=== PATIENT | female | born 1955 | race Caucasian/White ===

== ENCOUNTER 2018-10-08 18:58 | Inpatient (IN) | payer OTHER ==
[2018-10-08] MEDS: ASPIRIN 325 MG TAB PO (20:13)
[2018-10-08 20:16] LABS: ADD MAN DIFF? NO
[2018-10-08 20:23] LABS: BASOPHIL # 0.1 10^3/ul (0.0-0.1); BASOPHILS % 0.6 % (0.0-2.0); EOSINOPHILS # 0.1 10^3/ul (0.0-0.5); EOSINOPHILS % 0.6 % (0.0-7.0); HEMATOCRIT 34.2 % (37.0-47.0); HEMOGLOBIN 11.2 g/dl (12.0-16.0); LYMPHOCYTES # 0.6 10^3/ul (0.8-2.9); LYMPHOCYTES % 8.1 % (15.0-51.0); MEAN CORPUSCULAR HEMOGLOBIN 31.2 pg (29.0-33.0); MEAN CORPUSCULAR HGB CONC 32.7 g/dl (32.0-37.0); MEAN CORPUSCULAR VOLUME 95.3 fl (82.0-101.0); MEAN PLATELET VOLUME 12.3 fl (7.4-10.4); MONOCYTE # 0.6 10^3/ul (0.3-0.9); MONOCYTES % 7.2 % (0.0-11.0); NEUTROPHIL # 6.6 10^3/ul (1.6-7.5); NEUTROPHILS % 83.1 % (39.0-77.0); PLATELET COUNT 130 10^3/UL (140-415); RED BLOOD COUNT 3.59 10^6/ul (4.20-5.40)
[2018-10-08 20:23] LABS: WHITE BLOOD COUNT 7.9 10^3/ul (4.8-10.8)
[2018-10-08 20:40] LABS: ANION GAP 9 (5-13); BLOOD UREA NITROGEN 26 mg/dl (7-20); CALCIUM 8.7 mg/dl (8.4-10.2); CARBON DIOXIDE 33 mmol/L (21-31); CHLORIDE 95 mmol/L (97-110); CREATININE 2.87 mg/dl (0.44-1.00); Estimated GFR 17 mL/min (>60); GLUCOSE 231 mg/dl (70-220); POTASSIUM 3.6 mmol/L (3.5-5.1); SODIUM 137 mmol/L (135-144)
[2018-10-08 20:42] LABS: INR 1.11; PROTIME 14.4 Sec (11.9-14.9); PT RATIO 1.1
[2018-10-08 20:43] LABS: PARTIAL THROMBOPLASTIN TIME 36.2 Sec (23.0-35.0)
[2018-10-08 20:53] LABS: TROPONIN-I 0.169 ng/ml (0.000-0.120)
[2018-10-08] MEDS ORDERED: BISACODYL (EC) 5 MG TAB PO (22:30)
[2018-10-08] MEDS ORDERED: NACL 0.9% 3 ML SYG IV (22:30)
[2018-10-08] MEDS ORDERED: DOCUSATE SODIUM 100 MG CAP PO (22:30)
[2018-10-08] MEDS ORDERED: ONDANSETRON 4 MG INJ IV ×2 (22:30)
[2018-10-09 02:42] LABS: CREATINE KINASE 122 IU/L (23-200)
[2018-10-09 02:51] LABS: CK-MB 1.23 ng/ml (0.0-2.4)
[2018-10-09] MEDS ORDERED: DEXTROSE 50% 50 ML SYRINGE IV ×2 (04:00)
[2018-10-09] MEDS ORDERED: GLUCOSE GEL 15 GRAM TUBE PO ×2 (04:00)
[2018-10-09] MEDS ORDERED: GLUCAGON 1 MG INJ IM (04:00)
[2018-10-09] MEDS ORDERED: GLUCOSE GEL 15 GRAM TUBE BUCCAL (04:00)
[2018-10-09] MEDS: ACETAMINOPHEN 325 MG TAB PO (04:40)
[2018-10-09] MEDS: PANTOPRAZOLE (EC) 40 MG TAB PO (05:17)
[2018-10-09] MEDS: traMADol 50 MG TAB PO (05:26)
[2018-10-09 06:12] LABS: ADD MAN DIFF? NO
[2018-10-09 06:19] LABS: WHITE BLOOD COUNT 6.9 10^3/ul (4.8-10.8)
[2018-10-09 06:19] LABS: BASOPHIL # 0.1 10^3/ul (0.0-0.1); BASOPHILS % 0.9 % (0.0-2.0); EOSINOPHILS # 0.1 10^3/ul (0.0-0.5); EOSINOPHILS % 1.9 % (0.0-7.0); HEMATOCRIT 32.8 % (37.0-47.0); HEMOGLOBIN 10.6 g/dl (12.0-16.0); LYMPHOCYTES # 1.5 10^3/ul (0.8-2.9); MEAN CORPUSCULAR HEMOGLOBIN 31.2 pg (29.0-33.0); MEAN CORPUSCULAR HGB CONC 32.3 g/dl (32.0-37.0); MEAN CORPUSCULAR VOLUME 96.5 fl (82.0-101.0); MEAN PLATELET VOLUME 12.9 fl (7.4-10.4); MONOCYTE # 0.9 10^3/ul (0.3-0.9); MONOCYTES % 12.4 % (0.0-11.0); NEUTROPHIL # 4.3 10^3/ul (1.6-7.5); NEUTROPHILS % 62.5 % (39.0-77.0); PLATELET COUNT 119 10^3/UL (140-415)
[2018-10-09 06:55] LABS: ALANINE AMINOTRANSFERASE 7 IU/L (13-69); ALBUMIN/GLOBULIN RATIO 1.11; ALKALINE PHOSPHATASE 112 IU/L (42-121); ANION GAP 12 (5-13); ASPARTATE AMINO TRANSFERASE 14 IU/L (15-46); BILIRUBIN,INDIRECT 0.4 mg/dl (0-1.1); BILIRUBIN,TOTAL 0.4 mg/dl (0.2-1.3); BLOOD UREA NITROGEN 33 mg/dl (7-20); CALCIUM 8.7 mg/dl (8.4-10.2); CARBON DIOXIDE 33 mmol/L (21-31); CHLORIDE 94 mmol/L (97-110); CHOL/HDL RATIO 4.2 RATIO; CHOLESTEROL 127 mg/dl (100-200); CREATININE 3.42 mg/dl (0.44-1.00); Estimated GFR 14 mL/min (>60); GLUCOSE 268 mg/dl (70-220); HDL CHOLESTEROL 30 mg/dl (35-98); LDL CHOLESTEROL,CALCULATED 32 mg/dl; MAGNESIUM 1.5 mg/dl (1.7-2.5); POTASSIUM 3.3 mmol/L (3.5-5.1); SODIUM 139 mmol/L (135-144); TOTAL PROTEIN 7.6 g/dl (6.1-8.1); TRIGLYCERIDES 326 mg/dl (0-149)
[2018-10-09 07:00] LABS: CREATINE KINASE 136 IU/L (23-200)
[2018-10-09 07:01] LABS: CK INDEX 1.1; CK-MB 1.43 ng/ml (0.0-2.4)
[2018-10-09 07:11] LABS: TROPONIN-I 0.425 ng/ml (0.000-0.120)
[2018-10-09] MEDS: GABAPENTIN 300 MG CAP PO ×3 (08:06→21:42)
[2018-10-09] MEDS: ASPIRIN 81 MG TAB PO (08:06)
[2018-10-09] MEDS: SACUBITRIL/VALSARTAN (24mg-26mg) TABLET PO ×2 (08:06→21:42)
[2018-10-09] MEDS: GEMFIBROZIL 600 MG TAB PO (08:06)
[2018-10-09] MEDS: MIDODRINE 5 MG TAB PO (08:07)
[2018-10-09] MEDS: INSULIN ASPART [NOVOLOG] 3 ML PEN SC ×6 (08:11→20:21)
[2018-10-09] MEDS ORDERED: NON-FORMULARY/PATIENT OWN MED (Omeprazole* 20 MG) PO (09:00)
[2018-10-09] MEDS: POTASSIUM CHLORIDE (SR) 20 MEQ TAB PO (10:32)
[2018-10-09] MEDS: MAGNESIUM SULFATE 2 GM/50 ML 50 ML IVPB (10:32)
[2018-10-09] MEDS: FISH OIL 1,000 MG CAP PO ×2 (10:33→21:41)
[2018-10-09] MEDS: INSULIN GLARGINE [LANTus] (100 UNITS/ML) SYG SC (10:35)
[2018-10-09 11:18] LABS: CREATINE KINASE 137 IU/L (23-200)
[2018-10-09 11:30] LABS: CK-MB 1.32 ng/ml (0.0-2.4)
[2018-10-09 11:51] LABS: TROPONIN-I 0.397 ng/ml (0.000-0.120)
[2018-10-09] MEDS ORDERED: MIDAZOLAM 1 MG/ML 2 ML INJ (15:29)
[2018-10-09] MEDS ORDERED: IODIXANOL LOCM 100 ML BTL (15:29)
[2018-10-09] MEDS ORDERED: HEPARIN 1000 UNITS/ML 10 ML INJ (15:29)
[2018-10-09] MEDS ORDERED: FENTAnyl 50 MCG/ML VIAL (15:30)
[2018-10-09] MEDS ORDERED: VERAPAMIL 5 MG INJ (15:30)
[2018-10-09] MEDS ORDERED: NITROGLYCERIN (IC) 100 MCG/ML INJ (15:30)
[2018-10-09] MEDS ORDERED: SOD CHLORIDE 0.9% 500 ML (15:34)
[2018-10-09] MEDS: HOLD all METFORMIN and METFORMIN CONTAINING medications for 48 hours post procedure. Chec XX (17:07)
[2018-10-09 20:13] LABS: CREATINE KINASE 107 IU/L (23-200)
[2018-10-09 20:22] LABS: CK INDEX 1.1; CK-MB 1.17 ng/ml (0.0-2.4)
[2018-10-09 20:30] LABS: TROPONIN-I 0.362 ng/ml (0.000-0.120)
[2018-10-09] MEDS ORDERED: INSULIN GLARGINE [LANTus] (100 UNITS/ML) SYG SC (21:00)
[2018-10-09] MEDS ORDERED: INSULIN REGULAR, HUMAN 100 UNIT/1 ML 3ML VIAL SC (21:00)
[2018-10-09] MEDS: ATORVASTATIN 80 MG TAB PO (21:41)
[2018-10-09] MEDS: MELATONIN 5 MG TABLET PO (21:41)
[2018-10-10 00:49] LABS: CREATINE KINASE 114 IU/L (23-200)
[2018-10-10 01:02] LABS: CK-MB 1.13 ng/ml (0.0-2.4)
[2018-10-10] MEDS: morphine 2 MG INJ IV (01:05)
[2018-10-10] MEDS: LORAZEPAM 2 MG INJ IV (01:57)
[2018-10-10] MEDS: ACCU-CHEK XX (02:00)
[2018-10-10] MEDS: PANTOPRAZOLE (EC) 40 MG TAB PO (05:50)
[2018-10-10] MEDS: SACUBITRIL/VALSARTAN (24mg-26mg) TABLET PO ×2 (08:06→21:39)
[2018-10-10] MEDS: ASPIRIN 81 MG TAB PO (08:07)
[2018-10-10] MEDS: ISOSORBIDE MONONITRATE(SR)60 MG TAB PO (08:07)
[2018-10-10] MEDS: FISH OIL 1,000 MG CAP PO ×2 (08:07→21:39)
[2018-10-10] MEDS: GABAPENTIN 300 MG CAP PO ×3 (08:08→21:39)
[2018-10-10] MEDS: GEMFIBROZIL 600 MG TAB PO (08:08)
[2018-10-10] MEDS: INSULIN ASPART [NOVOLOG] 3 ML PEN SC ×7 (08:20→21:50)
[2018-10-10] MEDS: INSULIN GLARGINE [LANTus] (100 UNITS/ML) SYG SC ×2 (08:20→11:09)
[2018-10-10 20:39] LABS: HEPATITIS B SURFACE ANTIGEN NEGATIVE (NEGATIVE)
[2018-10-10 20:56] LABS: HEPATITIS B SURFACE ANTIBODY POSITIVE (NEGATIVE)
[2018-10-10] MEDS: ATORVASTATIN 80 MG TAB PO (21:39)
[2018-10-11] MEDS: ACCU-CHEK XX (02:07)
[2018-10-11] MEDS: PANTOPRAZOLE (EC) 40 MG TAB PO (05:37)
[2018-10-11 06:43] LABS: ADD MAN DIFF? NO
[2018-10-11 06:47] LABS: BASOPHILS % 0.6 % (0.0-2.0); EOSINOPHILS # 0.2 10^3/ul (0.0-0.5); EOSINOPHILS % 2.4 % (0.0-7.0); HEMATOCRIT 32.4 % (37.0-47.0); HEMOGLOBIN 10.7 g/dl (12.0-16.0); LYMPHOCYTES % 15.2 % (15.0-51.0); MEAN CORPUSCULAR HEMOGLOBIN 31.3 pg (29.0-33.0); MEAN CORPUSCULAR VOLUME 94.7 fl (82.0-101.0); MEAN PLATELET VOLUME 12.8 fl (7.4-10.4); MONOCYTE # 0.6 10^3/ul (0.3-0.9); MONOCYTES % 9.4 % (0.0-11.0); NEUTROPHIL # 4.9 10^3/ul (1.6-7.5); NEUTROPHILS % 72.1 % (39.0-77.0); PLATELET COUNT 131 10^3/UL (140-415); RED BLOOD COUNT 3.42 10^6/ul (4.20-5.40); RED CELL DISTRIBUTION WIDTH 13.8 % (11.5-14.5)
[2018-10-11 06:47] LABS: WHITE BLOOD COUNT 6.7 10^3/ul (4.8-10.8)
[2018-10-11 07:10] LABS: ANION GAP 11 (5-13); BLOOD UREA NITROGEN 30 mg/dl (7-20); CALCIUM 9.1 mg/dl (8.4-10.2); CARBON DIOXIDE 31 mmol/L (21-31); CHLORIDE 95 mmol/L (97-110); CREATININE 3.64 mg/dl (0.44-1.00); Estimated GFR 13 mL/min (>60); GLUCOSE 263 mg/dl (70-220); MAGNESIUM 1.9 mg/dl (1.7-2.5); PHOSPHORUS 3.8 mg/dl (2.5-4.9); POTASSIUM 3.9 mmol/L (3.5-5.1); SODIUM 137 mmol/L (135-144)
[2018-10-11] MEDS: INSULIN ASPART [NOVOLOG] 3 ML PEN SC ×8 (07:52→22:13)
[2018-10-11] MEDS: FISH OIL 1,000 MG CAP PO ×2 (08:14→22:08)
[2018-10-11] MEDS: ASPIRIN 81 MG TAB PO (08:14)
[2018-10-11] MEDS: SACUBITRIL/VALSARTAN (24mg-26mg) TABLET PO ×2 (08:14→22:08)
[2018-10-11] MEDS: GABAPENTIN 300 MG CAP PO (08:14)
[2018-10-11] MEDS: ISOSORBIDE MONONITRATE(SR)60 MG TAB PO (08:15)
[2018-10-11] MEDS: GEMFIBROZIL 600 MG TAB PO (08:15)
[2018-10-11] MEDS: INSULIN GLARGINE [LANTus] (100 UNITS/ML) SYG SC ×2 (08:20→14:06)
[2018-10-11] MEDS: ALBUMIN HUMAN 25% 50 ML IV (14:18)
[2018-10-11] MEDS: ATORVASTATIN 80 MG TAB PO (22:11)
[2018-10-11] MEDS: traMADol 50 MG TAB PO (22:15)
[2018-10-11] MEDS: LORAZEPAM 2 MG INJ IV (22:16)
[2018-10-12] MEDS: ACCU-CHEK XX (02:00)
[2018-10-12] MEDS: PANTOPRAZOLE (EC) 40 MG TAB PO (06:01)
[2018-10-12] MEDS: INSULIN ASPART [NOVOLOG] 3 ML PEN SC ×7 (07:56→21:21)
[2018-10-12] MEDS: ASPIRIN 81 MG TAB PO (08:48)
[2018-10-12] MEDS: GEMFIBROZIL 600 MG TAB PO (08:48)
[2018-10-12] MEDS: FISH OIL 1,000 MG CAP PO ×2 (08:48→21:23)
[2018-10-12] MEDS: INSULIN GLARGINE [LANTus] (100 UNITS/ML) SYG SC (08:57)
[2018-10-12] MEDS: SACUBITRIL/VALSARTAN (24mg-26mg) TABLET PO ×2 (08:57→21:13)
[2018-10-12] MEDS ORDERED: ZOLPIDEM 5 MG TAB PO (10:00)
[2018-10-12] MEDS: ALBUMIN HUMAN 25% 100 ML IV (10:12)
[2018-10-12] MEDS ORDERED: traZODone 50 MG TAB PO (21:00)
[2018-10-12] MEDS: ACETAMINOPHEN 325 MG TAB PO (21:14)
[2018-10-12] MEDS: ATORVASTATIN 80 MG TAB PO (21:26)
[2018-10-12] MEDS: NITROGLYCERIN (SL) 0.4 MG TAB SL (21:27)
[2018-10-12] MEDS ORDERED: NITROGLYCERIN (SL) 0.4 MG TAB SL (21:30)
[2018-10-12] MEDS: ZOLPIDEM 5 MG TAB PO (21:40)
[2018-10-13] MEDS: traMADol 50 MG TAB PO (00:29)
[2018-10-13] MEDS: ACCU-CHEK XX (02:00)
[2018-10-13] MEDS: PANTOPRAZOLE (EC) 40 MG TAB PO (06:38)
[2018-10-13] MEDS: INSULIN ASPART [NOVOLOG] 3 ML PEN SC ×4 (07:55→11:24)
[2018-10-13] MEDS: ASPIRIN 81 MG TAB PO (08:14)
[2018-10-13] MEDS: FISH OIL 1,000 MG CAP PO (08:14)
[2018-10-13] MEDS: SACUBITRIL/VALSARTAN (24mg-26mg) TABLET PO (08:14)
[2018-10-13] MEDS: GEMFIBROZIL 600 MG TAB PO (08:14)
[2018-10-13] MEDS: INSULIN GLARGINE [LANTus] (100 UNITS/ML) SYG SC (08:15)
[2018-10-13] MEDS ORDERED: traMADol 50 MG TAB PO (23:40)
== END 2018-10-13 14:41 | disposition home or self-care (01) | DRG 280 ==
LOC: TEL 22:12 → E/R 18:58 → TEL 10-09 19:32
PROC: 4A023N7 Measurement of Cardiac Sampling and Pressure, Left Heart, Percutaneous Approach (ICD-10-PCS; principal; 2018-10-09 15:42)
PROC: B2111ZZ Fluoroscopy of Multiple Coronary Arteries using Low Osmolar Contrast (ICD-10-PCS; 2018-10-09 15:42)
PROC: 5A1D70Z Performance of Urinary Filtration, Intermittent, Less than 6 Hours Per Day (ICD-10-PCS; 2018-10-09 15:42)
PROC: 5A1D70Z Performance of Urinary Filtration, Intermittent, Less than 6 Hours Per Day (ICD-10-PCS; 2018-10-09 15:42)
PROC: 5A1D70Z Performance of Urinary Filtration, Intermittent, Less than 6 Hours Per Day (ICD-10-PCS; 2018-10-09 15:42)
DX: I21.4 Non-ST elevation (NSTEMI) myocardial infarction (principal); N18.6 End stage renal disease; I50.22 Chronic systolic (congestive) heart failure; I13.0 Hypertensive heart and chronic kidney disease with heart failure and stage 1 through stage 4 chronic kidney disease, or unspecified chronic kidney disease; I25.5 Ischemic cardiomyopathy; E11.8 Type 2 diabetes mellitus with unspecified complications; E11.22 Type 2 diabetes mellitus with diabetic chronic kidney disease; E83.42 Hypomagnesemia; E87.5 Hyperkalemia; E78.5 Hyperlipidemia, unspecified; I25.10 Atherosclerotic heart disease of native coronary artery without angina pectoris; E87.6 Hypokalemia; E66.9 Obesity, unspecified; Z68.34 Body mass index [BMI] 34.0-34.9, adult; D63.1 Anemia in chronic kidney disease; Z95.0 Presence of cardiac pacemaker; Z79.4 Long term (current) use of insulin; Z79.82 Long term (current) use of aspirin
CPT/HCPCS: 36415; 71045; 80048; 80053; 80061; 82550; 82553; 82962; 83036; 83735; 84100; 84443; 84484; 85025; 85610; 85730; 86706; 87040-91; 87340; 90935; 93005; 93306; 93454; 93970; 99285-25

== ENCOUNTER 2018-10-15 21:39 | Inpatient (IN) | payer OTHER ==
[2018-10-15] MEDS ORDERED: NITROGLYCERIN (SL) 0.4 MG TAB SL (22:30)
[2018-10-15 22:53] LABS: ADD MAN DIFF? NO
[2018-10-15 22:56] LABS: WHITE BLOOD COUNT 7.5 10^3/ul (4.8-10.8)
[2018-10-15 22:56] LABS: BASOPHIL # 0.1 10^3/ul (0.0-0.1); BASOPHILS % 0.7 % (0.0-2.0); EOSINOPHILS # 0.1 10^3/ul (0.0-0.5); EOSINOPHILS % 1.6 % (0.0-7.0); HEMATOCRIT 32.8 % (37.0-47.0); HEMOGLOBIN 10.6 g/dl (12.0-16.0); LYMPHOCYTES % 12.7 % (15.0-51.0); MEAN CORPUSCULAR HEMOGLOBIN 30.9 pg (29.0-33.0); MEAN CORPUSCULAR HGB CONC 32.3 g/dl (32.0-37.0); MEAN CORPUSCULAR VOLUME 95.6 fl (82.0-101.0); MEAN PLATELET VOLUME 12.8 fl (7.4-10.4); MONOCYTE # 0.4 10^3/ul (0.3-0.9); MONOCYTES % 5.6 % (0.0-11.0); NEUTROPHILS % 79.1 % (39.0-77.0); PLATELET COUNT 144 10^3/UL (140-415); RED BLOOD COUNT 3.43 10^6/ul (4.20-5.40); RED CELL DISTRIBUTION WIDTH 13.7 % (11.5-14.5)
[2018-10-15] MEDS: ASPIRIN 81 MG TAB PO (23:00)
[2018-10-15] MEDS: NITROGLYCERIN 2% 1 GM OINT PKT TD (23:01)
[2018-10-15 23:10] LABS: HEMOGLOBIN A1C 8.7 % (0-5.9)
[2018-10-15 23:14] LABS: CHOL/HDL RATIO 3.6 RATIO; INR 1.21; LDL CHOLESTEROL,CALCULATED 28 mg/dl; PROTIME 15.4 Sec (11.9-14.9); PT RATIO 1.2
[2018-10-15 23:15] LABS: CHOLESTEROL 96 mg/dl (100-200)
[2018-10-15 23:15] LABS: ANION GAP 14 (5-13); BLOOD UREA NITROGEN 66 mg/dl (7-20); CALCIUM 7.9 mg/dl (8.4-10.2); CARBON DIOXIDE 21 mmol/L (21-31); CHLORIDE 103 mmol/L (97-110); CREATININE 5.81 mg/dl (0.44-1.00); Estimated GFR 7 mL/min (>60); GLUCOSE 208 mg/dl (70-220); HDL CHOLESTEROL 26 mg/dl (35-98); POTASSIUM 4.3 mmol/L (3.5-5.1); SODIUM 138 mmol/L (135-144); TRIGLYCERIDES 211 mg/dl (0-149)
[2018-10-15 23:28] LABS: TROPONIN-I 0.125 ng/ml (0.000-0.120)
[2018-10-16] MEDS ORDERED: ACETAMINOPHEN 325 MG TAB PO
[2018-10-16 00:02] LABS: PARTIAL THROMBOPLASTIN TIME 148.4 Sec (23.0-35.0)
[2018-10-16] MEDS ORDERED: ONDANSETRON 4 MG INJ IV ×2 (02:30)
[2018-10-16] MEDS ORDERED: NITROGLYCERIN (SL) 0.4 MG TAB SL (02:30)
[2018-10-16] MEDS ORDERED: ALBUTEROL/IPRATROPIUM (NEB) 3 ML AMP HHN (02:30)
[2018-10-16] MEDS ORDERED: GLUCOSE GEL 15 GRAM TUBE BUCCAL (02:30)
[2018-10-16] MEDS ORDERED: NACL 0.9% 3 ML SYG IV (02:30)
[2018-10-16] MEDS ORDERED: NON-FORMULARY/PATIENT OWN MED (Insulin Lispro (Humalog Kwikpen U-100) 10 UNIT) SQ (02:30)
[2018-10-16] MEDS ORDERED: DEXTROSE 50% 50 ML SYRINGE IV ×2 (02:30)
[2018-10-16] MEDS ORDERED: GLUCAGON 1 MG INJ IM (02:30)
[2018-10-16] MEDS ORDERED: traMADol 50 MG TAB PO (02:30)
[2018-10-16] MEDS ORDERED: GLUCOSE GEL 15 GRAM TUBE PO ×2 (02:30)
[2018-10-16 04:27] LABS: ADD MAN DIFF? NO
[2018-10-16 04:29] LABS: WHITE BLOOD COUNT 6.8 10^3/ul (4.8-10.8)
[2018-10-16 04:29] LABS: BASOPHIL # 0.1 10^3/ul (0.0-0.1); EOSINOPHILS # 0.1 10^3/ul (0.0-0.5); EOSINOPHILS % 2.1 % (0.0-7.0); HEMATOCRIT 29.8 % (37.0-47.0); HEMOGLOBIN 9.9 g/dl (12.0-16.0); LYMPHOCYTES % 14.5 % (15.0-51.0); MEAN CORPUSCULAR HEMOGLOBIN 31.3 pg (29.0-33.0); MEAN CORPUSCULAR HGB CONC 33.2 g/dl (32.0-37.0); MEAN CORPUSCULAR VOLUME 94.3 fl (82.0-101.0); MEAN PLATELET VOLUME 12.4 fl (7.4-10.4); MONOCYTE # 0.6 10^3/ul (0.3-0.9); MONOCYTES % 8.7 % (0.0-11.0); NEUTROPHIL # 4.9 10^3/ul (1.6-7.5); NEUTROPHILS % 73.3 % (39.0-77.0); PLATELET COUNT 143 10^3/UL (140-415); RED BLOOD COUNT 3.16 10^6/ul (4.20-5.40); RED CELL DISTRIBUTION WIDTH 13.5 % (11.5-14.5)
[2018-10-16 04:59] LABS: CREATINE KINASE 74 IU/L (23-200)
[2018-10-16 05:07] LABS: ALANINE AMINOTRANSFERASE 19 IU/L (13-69); ALBUMIN 3.7 g/dl (3.3-4.9); ALBUMIN/GLOBULIN RATIO 1.12; ALKALINE PHOSPHATASE 107 IU/L (42-121); ANION GAP 14 (5-13); ASPARTATE AMINO TRANSFERASE 9 IU/L (15-46); BILIRUBIN,INDIRECT 0.2 mg/dl (0-1.1); BILIRUBIN,TOTAL 0.2 mg/dl (0.2-1.3); BLOOD UREA NITROGEN 67 mg/dl (7-20); CALCIUM 7.7 mg/dl (8.4-10.2); CARBON DIOXIDE 22 mmol/L (21-31); CHLORIDE 104 mmol/L (97-110); CREATININE 5.51 mg/dl (0.44-1.00); Estimated GFR 8 mL/min (>60); GLUCOSE 153 mg/dl (70-220); MAGNESIUM 1.8 mg/dl (1.7-2.5); POTASSIUM 4.4 mmol/L (3.5-5.1); SODIUM 140 mmol/L (135-144)
[2018-10-16 05:09] LABS: CK INDEX 2.4; CK-MB 1.81 ng/ml (0.0-2.4)
[2018-10-16 05:16] LABS: TROPONIN-I 0.123 ng/ml (0.000-0.120)
[2018-10-16] MEDS: PANTOPRAZOLE (EC) 40 MG TAB PO (07:14)
[2018-10-16] MEDS ORDERED: LIDOCAINE 1% (MDV) 20 ML INJ (07:27)
[2018-10-16] MEDS: LIDOCAINE 1% (MDV) 20 ML INJ SC (07:44)
[2018-10-16] MEDS: INSULIN ASPART [NOVOLOG] 3 ML PEN SC ×7 (08:00→22:17)
[2018-10-16] MEDS ORDERED: NON-FORMULARY/PATIENT OWN MED (Omeprazole* 20 MG) PO (09:00)
[2018-10-16 10:55] LABS: CREATINE KINASE 77 IU/L (23-200)
[2018-10-16 11:09] LABS: CK INDEX 2.1; CK-MB 1.59 ng/ml (0.0-2.4); TROPONIN-I 0.104 ng/ml (0.000-0.120)
[2018-10-16] MEDS: GEMFIBROZIL 600 MG TAB PO (11:32)
[2018-10-16] MEDS: ASPIRIN 81 MG TAB PO (11:33)
[2018-10-16] MEDS: HEPARIN 5,000 UNIT/1 ML VIAL SC ×2 (11:34→21:00)
[2018-10-16] MEDS: SACUBITRIL/VALSARTAN (24mg-26mg) TABLET PO ×2 (11:34→21:38)
[2018-10-16] MEDS: GABAPENTIN 300 MG CAP PO ×3 (11:35→21:37)
[2018-10-16] MEDS: MIDODRINE 5 MG TAB PO ×3 (11:35→21:37)
[2018-10-16] MEDS: INSULIN GLARGINE [LANTus] (100 UNITS/ML) SYG SC (21:00)
[2018-10-16] MEDS: ATORVASTATIN 80 MG TAB PO (21:37)
[2018-10-17] MEDS: ACCU-CHEK XX (02:00)
[2018-10-17] MEDS: PANTOPRAZOLE (EC) 40 MG TAB PO (06:00)
[2018-10-17 06:18] LABS: ADD MAN DIFF? NO
[2018-10-17 06:21] LABS: BASOPHIL # 0.1 10^3/ul (0.0-0.1); BASOPHILS % 0.7 % (0.0-2.0); EOSINOPHILS # 0.2 10^3/ul (0.0-0.5); EOSINOPHILS % 2.7 % (0.0-7.0); HEMATOCRIT 28.9 % (37.0-47.0); HEMOGLOBIN 9.5 g/dl (12.0-16.0); LYMPHOCYTES # 1.5 10^3/ul (0.8-2.9); LYMPHOCYTES % 21.6 % (15.0-51.0); MEAN CORPUSCULAR HEMOGLOBIN 31.3 pg (29.0-33.0); MEAN CORPUSCULAR HGB CONC 32.9 g/dl (32.0-37.0); MEAN CORPUSCULAR VOLUME 95.1 fl (82.0-101.0); MEAN PLATELET VOLUME 12.8 fl (7.4-10.4); MONOCYTE # 0.7 10^3/ul (0.3-0.9); MONOCYTES % 9.8 % (0.0-11.0); NEUTROPHIL # 4.6 10^3/ul (1.6-7.5); NEUTROPHILS % 64.9 % (39.0-77.0); PLATELET COUNT 163 10^3/UL (140-415); RED BLOOD COUNT 3.04 10^6/ul (4.20-5.40); RED CELL DISTRIBUTION WIDTH 13.7 % (11.5-14.5)
[2018-10-17 07:06] LABS: AMPHETAMINE/METHAMPHETAMINE Negative (NEGATIVE); BARBITURATES Negative (NEGATIVE); BENZODIAZEPINES Negative (NEGATIVE); CANNABINOIDS Negative (NEGATIVE); COCAINE Negative (NEGATIVE); OPIATES Negative (NEGATIVE)
[2018-10-17 07:08] LABS: ANION GAP 14 (5-13); BLOOD UREA NITROGEN 74 mg/dl (7-20); CALCIUM 7.8 mg/dl (8.4-10.2); CARBON DIOXIDE 21 mmol/L (21-31); CHLORIDE 104 mmol/L (97-110); CREATININE 5.73 mg/dl (0.44-1.00); Estimated GFR 7 mL/min (>60); GLUCOSE 160 mg/dl (70-220); MAGNESIUM 1.8 mg/dl (1.7-2.5); PHOSPHORUS 5.5 mg/dl (2.5-4.9); POTASSIUM 4.1 mmol/L (3.5-5.1); SODIUM 139 mmol/L (135-144)
[2018-10-17] MEDS: INSULIN ASPART [NOVOLOG] 3 ML PEN SC ×7 (07:53→20:55)
[2018-10-17] MEDS: GABAPENTIN 300 MG CAP PO ×3 (08:49→20:56)
[2018-10-17] MEDS: ASPIRIN 81 MG TAB PO (08:50)
[2018-10-17] MEDS: MIDODRINE 5 MG TAB PO ×3 (08:50→20:57)
[2018-10-17] MEDS: SACUBITRIL/VALSARTAN (24mg-26mg) TABLET PO ×2 (08:50→20:56)
[2018-10-17] MEDS: GEMFIBROZIL 600 MG TAB PO (08:50)
[2018-10-17] MEDS: HEPARIN 5,000 UNIT/1 ML VIAL SC ×2 (08:58→21:21)
[2018-10-17 12:47] LABS: HEPATITIS B SURFACE ANTIGEN NEGATIVE (NEGATIVE)
[2018-10-17 16:10] LABS: ADD UMIC YES; UR ASCORBIC ACID NEGATIVE (NEGATIVE); UR BACTERIA FEW /HPF (NONE SEEN); UR BILIRUBIN (Dip) NEGATIVE (NEGATIVE); UR BLOOD (Dip) 1+ mg/dL (NEGATIVE); UR CLARITY SLIGHTLY CLOUDY (CLEAR); UR COLOR YELLOW (YELLOW); UR GLUCOSE (Dip) 1+ mg/dL (NEGATIVE); UR KETONES (Dip) NEGATIVE (NEGATIVE); UR LEUKOCYTE ESTERASE (Dip) 2+ Leu/ul (NEGATIVE); UR NITRITE (Dip) NEGATIVE (NEGATIVE); UR RBC 4 /HPF (0-5); UR SPECIFIC GRAVITY (Dip) 1.012 (1.003-1.030); UR SQUAMOUS EPITHELIAL CELL MODERATE /HPF (FEW); UR TOTAL PROTEIN (Dip) 2+ mg/dl (NEGATIVE); UR UROBILINOGEN (Dip) NEGATIVE (NEGATIVE); UR WBC 14 /HPF (0-5)
[2018-10-17] MEDS: ATORVASTATIN 80 MG TAB PO (20:59)
[2018-10-17] MEDS: INSULIN GLARGINE [LANTus] (100 UNITS/ML) SYG SC (21:22)
[2018-10-18] MEDS: ACETAMINOPHEN 325 MG TAB PO ×3 (00:20→22:35)
[2018-10-18] MEDS: ACCU-CHEK XX (02:00)
[2018-10-18] MEDS: hydrALAzine 20 MG INJ IV (02:17)
[2018-10-18] MEDS: ZOLPIDEM 5 MG TAB PO ×2 (02:17→22:33)
[2018-10-18] MEDS: PANTOPRAZOLE (EC) 40 MG TAB PO (06:19)
[2018-10-18] MEDS: INSULIN ASPART [NOVOLOG] 3 ML PEN SC ×7 (07:37→21:00)
[2018-10-18] MEDS: GEMFIBROZIL 600 MG TAB PO (08:48)
[2018-10-18] MEDS: SACUBITRIL/VALSARTAN (24mg-26mg) TABLET PO ×2 (08:48→20:48)
[2018-10-18] MEDS: MIDODRINE 5 MG TAB PO ×3 (08:48→21:00)
[2018-10-18] MEDS: GABAPENTIN 300 MG CAP PO ×3 (08:48→20:48)
[2018-10-18] MEDS: ASPIRIN 81 MG TAB PO (08:48)
[2018-10-18] MEDS: HEPARIN 5,000 UNIT/1 ML VIAL SC ×2 (08:54→21:01)
[2018-10-18 11:53] LABS: PROCALCITONIN 3.48 ng/mL (0.00-0.10)
[2018-10-18] MEDS: CEFTRIAXONE 1 GM/50 ML (PMX) 50 ML IVPB (11:57)
[2018-10-18] MEDS: LOPERAMIDE 2 MG CAP PO (17:14)
[2018-10-18] MEDS: ATORVASTATIN 80 MG TAB PO (20:49)
[2018-10-18] MEDS: INSULIN GLARGINE [LANTus] (100 UNITS/ML) SYG SC (21:01)
[2018-10-19] MEDS: ACCU-CHEK XX (02:00)
[2018-10-19] MEDS: ACETAMINOPHEN 325 MG TAB PO (04:27)
[2018-10-19] MEDS: PANTOPRAZOLE (EC) 40 MG TAB PO (04:27)
[2018-10-19 06:52] LABS: ADD MAN DIFF? NO
[2018-10-19 06:58] LABS: BASOPHIL # 0.1 10^3/ul (0.0-0.1); BASOPHILS % 0.5 % (0.0-2.0); EOSINOPHILS # 0.1 10^3/ul (0.0-0.5); EOSINOPHILS % 0.5 % (0.0-7.0); HEMATOCRIT 28.2 % (37.0-47.0); HEMOGLOBIN 9.1 g/dl (12.0-16.0); LYMPHOCYTES # 1.5 10^3/ul (0.8-2.9); LYMPHOCYTES % 14.8 % (15.0-51.0); MEAN CORPUSCULAR HEMOGLOBIN 31.1 pg (29.0-33.0); MEAN CORPUSCULAR HGB CONC 32.3 g/dl (32.0-37.0); MEAN CORPUSCULAR VOLUME 96.2 fl (82.0-101.0); MEAN PLATELET VOLUME 12.7 fl (7.4-10.4); MONOCYTE # 0.9 10^3/ul (0.3-0.9); MONOCYTES % 9.3 % (0.0-11.0); NEUTROPHIL # 7.5 10^3/ul (1.6-7.5); NEUTROPHILS % 74.5 % (39.0-77.0); PLATELET COUNT 149 10^3/UL (140-415); RED BLOOD COUNT 2.93 10^6/ul (4.20-5.40); RED CELL DISTRIBUTION WIDTH 13.9 % (11.5-14.5)
[2018-10-19 07:19] LABS: ANION GAP 13 (5-13); BLOOD UREA NITROGEN 61 mg/dl (7-20); CARBON DIOXIDE 23 mmol/L (21-31); CHLORIDE 103 mmol/L (97-110); CREATININE 4.75 mg/dl (0.44-1.00); Estimated GFR 9 mL/min (>60); GLUCOSE 141 mg/dl (70-220); MAGNESIUM 1.7 mg/dl (1.7-2.5); PHOSPHORUS 4.1 mg/dl (2.5-4.9); POTASSIUM 3.5 mmol/L (3.5-5.1); SODIUM 139 mmol/L (135-144)
[2018-10-19] MEDS: INSULIN ASPART [NOVOLOG] 3 ML PEN SC ×7 (07:55→21:28)
[2018-10-19] MEDS: MIDODRINE 5 MG TAB PO ×3 (09:36→21:09)
[2018-10-19] MEDS: ASPIRIN 81 MG TAB PO (09:37)
[2018-10-19] MEDS: SACUBITRIL/VALSARTAN (24mg-26mg) TABLET PO ×2 (09:37→21:08)
[2018-10-19] MEDS: GABAPENTIN 300 MG CAP PO ×3 (09:38→21:10)
[2018-10-19] MEDS: GEMFIBROZIL 600 MG TAB PO (09:38)
[2018-10-19] MEDS: HEPARIN 5,000 UNIT/1 ML VIAL SC ×2 (09:48→21:28)
[2018-10-19] MEDS: CEFTRIAXONE 1 GM/50 ML (PMX) 50 ML IVPB (11:45)
[2018-10-19] MEDS: ATORVASTATIN 80 MG TAB PO (21:09)
[2018-10-19] MEDS: ZOLPIDEM 5 MG TAB PO (21:13)
[2018-10-19] MEDS: INSULIN GLARGINE [LANTus] (100 UNITS/ML) SYG SC (21:27)
[2018-10-19] MEDS ORDERED: ZOLPIDEM 5 MG TAB PO (21:30)
[2018-10-20] MEDS: ACCU-CHEK XX (02:00)
[2018-10-20] MEDS: traZODone 50 MG TAB PO (03:03)
[2018-10-20] MEDS: PANTOPRAZOLE (EC) 40 MG TAB PO (05:50)
[2018-10-20] MEDS: ASPIRIN 81 MG TAB PO (08:29)
[2018-10-20] MEDS: GEMFIBROZIL 600 MG TAB PO (08:29)
[2018-10-20] MEDS: GABAPENTIN 300 MG CAP PO ×3 (08:29→21:09)
[2018-10-20] MEDS: HEPARIN 5,000 UNIT/1 ML VIAL SC ×2 (08:34→21:36)
[2018-10-20] MEDS: INSULIN ASPART [NOVOLOG] 3 ML PEN SC ×7 (08:35→21:00)
[2018-10-20] MEDS: SACUBITRIL/VALSARTAN (24mg-26mg) TABLET PO ×2 (08:36→21:09)
[2018-10-20] MEDS: MIDODRINE 5 MG TAB PO (09:00)
[2018-10-20] MEDS: CEFTRIAXONE 1 GM/50 ML (PMX) 50 ML IVPB (12:07)
[2018-10-20] MEDS: ATORVASTATIN 80 MG TAB PO (21:09)
[2018-10-20] MEDS: INSULIN GLARGINE [LANTus] (100 UNITS/ML) SYG SC (21:36)
[2018-10-21] MEDS: ZOLPIDEM 5 MG TAB PO (00:20)
[2018-10-21] MEDS: ACCU-CHEK XX (02:00)
[2018-10-21] MEDS: LORAZEPAM 2 MG INJ IV (03:33)
[2018-10-21] MEDS: PANTOPRAZOLE (EC) 40 MG TAB PO (06:00)
[2018-10-21] MEDS: SACUBITRIL/VALSARTAN (24mg-26mg) TABLET PO (08:32)
[2018-10-21] MEDS: INSULIN ASPART [NOVOLOG] 3 ML PEN SC ×4 (08:37→14:20)
[2018-10-21] MEDS ORDERED: COLLAGENASE 5 GM (UD JAR) TOP (09:00)
[2018-10-21] MEDS ORDERED: ZINC SULFATE 220 MG CAP GTB (09:00)
[2018-10-21] MEDS ORDERED: FOLIC ACID 1 MG TAB GTB (09:00)
[2018-10-21] MEDS ORDERED: ASCORBIC ACID 250 MG TAB GTB (09:00)
[2018-10-21] MEDS: ASPIRIN 81 MG TAB PO (09:21)
[2018-10-21] MEDS: GEMFIBROZIL 600 MG TAB PO (09:21)
[2018-10-21] MEDS: GABAPENTIN 300 MG CAP PO ×2 (09:21→14:21)
[2018-10-21] MEDS: HEPARIN 5,000 UNIT/1 ML VIAL SC (09:30)
[2018-10-21] MEDS: CEFTRIAXONE 1 GM/50 ML (PMX) 50 ML IVPB (14:21)
== END 2018-10-21 15:20 | disposition home health service (06) | DRG 689 ==
LOC: TEL 23:32 → E/R 21:39
PROVIDERS: Internal Medicine
PROC: 5A1D70Z Performance of Urinary Filtration, Intermittent, Less than 6 Hours Per Day (ICD-10-PCS; principal; 2018-10-17)
PROC: 5A1D70Z Performance of Urinary Filtration, Intermittent, Less than 6 Hours Per Day (ICD-10-PCS; 2018-10-19)
PROC: 5A1D70Z Performance of Urinary Filtration, Intermittent, Less than 6 Hours Per Day (ICD-10-PCS; 2018-10-21)
DX: N39.0 Urinary tract infection, site not specified (principal); N18.6 End stage renal disease; I13.2 Hypertensive heart and chronic kidney disease with heart failure and with stage 5 chronic kidney disease, or end stage renal disease; I50.22 Chronic systolic (congestive) heart failure; R42 Dizziness and giddiness; I25.10 Atherosclerotic heart disease of native coronary artery without angina pectoris; Z95.0 Presence of cardiac pacemaker; Z86.73 Personal history of transient ischemic attack (TIA), and cerebral infarction without residual deficits; Z90.49 Acquired absence of other specified parts of digestive tract; E11.22 Type 2 diabetes mellitus with diabetic chronic kidney disease; E78.5 Hyperlipidemia, unspecified; D63.1 Anemia in chronic kidney disease; Z79.82 Long term (current) use of aspirin; Z79.4 Long term (current) use of insulin
CPT/HCPCS: 36415; 70450; 71045; 80048; 80053; 80061; 80307; 81001; 82550; 82553; 82962; 83036; 83735; 84100; 84145; 84484; 85025; 85610; 85730; 87040-91; 87045; 87075; 87086; 87177; 87340; 90935; 93005; 93880; 97110; 97116; 97161; 97530; 99285-25

== ENCOUNTER 2018-12-22 13:15 | Day surgery (SDC) | payer OTHER ==
[2018-12-22 16:08] LABS: POTASSIUM 3.1 mmol/L (3.5-5.1)
[2018-12-22] MEDS ORDERED: LIDOCAINE 2% (SDV) 5 ML INJ (18:01)
[2018-12-22] MEDS ORDERED: PROPOFOL 40 ML (18:01)
[2018-12-22] MEDS ORDERED: FENTAnyl 50 MCG/ML VIAL (18:01)
== END 2018-12-22 19:54 | disposition home or self-care (01) ==
LOC: GIL 13:15
DX: R19.4 Change in bowel habit (principal); K64.4 Residual hemorrhoidal skin tags; K57.30 Diverticulosis of large intestine without perforation or abscess without bleeding; K29.30 Chronic superficial gastritis without bleeding; K20.9 Esophagitis, unspecified; E11.9 Type 2 diabetes mellitus without complications; I12.0 Hypertensive chronic kidney disease with stage 5 chronic kidney disease or end stage renal disease; N18.6 End stage renal disease; Z99.2 Dependence on renal dialysis; Z86.73 Personal history of transient ischemic attack (TIA), and cerebral infarction without residual deficits; E78.5 Hyperlipidemia, unspecified; Z79.82 Long term (current) use of aspirin; Z79.4 Long term (current) use of insulin
CPT/HCPCS: 43239; 82962; 84132; 88305; 88312